=== PATIENT | male | born 1980 | race Caucasian/White ===

== ENCOUNTER 2024-06-08 13:14 | Emergency (ER) | payer OTHER ==
[~2024-06-08] VITALS: Ht 182.9 cm; Wt 155.8 kg
[2024-06-08] MEDS ORDERED: LOSARTAN POTAS100 MG PO (15:18)
[2024-06-08] MEDS ORDERED: JARDIANCE10 MG PO (15:19)
[2024-06-08] MEDS ORDERED: ACETAMINOPHEN 500 MG TAB PO ONE (18:30)
[2024-06-08] MEDS ORDERED: IBUPROFEN 600 MG TAB PO ONE (18:30)
[2024-06-08 19:02] VITALS: BP 120/73
== END 2024-06-08 19:05 | disposition home or self-care (01) ==
LOC: ED 13:14
DX: S20.212A Contusion of left front wall of thorax, initial encounter (principal); E11.9 Type 2 diabetes mellitus without complications; W17.89XA Other fall from one level to another, initial encounter
CPT/HCPCS: 71045; 99283-25; A9270